=== PATIENT | female | born 1980 | race Two or more races ===

== ENCOUNTER → 2020-11-13 | Outpatient (CLI) | payer OTHER ==
--- NOTE | 2020-11-13 12:05 | REP ---
INDICATION: TREVON SCR MAMMO. COMPARISON: None. TECHNIQUE: MLO and CC views bilateral breasts with tomosynthesis. FINDINGS: Mild scattered fibroglandular tissue is present bilaterally. There is an oval well-defined nodule in the inferolateral right breast measuring 1 cm in maximum diameter. No other mass, nodule or architectural distortion is seen. No clustered microcalcifications are seen. The Volpara volumetric breast density pattern is B. IMPRESSION: BIRADS/ACR category 0, incomplete. Oval smoothly marginated nodule inferolateral right breast 1 cm in diameter. Recommend spot compression views and ultrasound to further evaluate This patient's [facility] lifetime breast cancer risk assessment score is 9.1%. This mammogram was interpreted with the aid of an FDA-approved computer-aided detection system. The patient states she had a clinical breast exam in November 2020. The patient letter being requested is M0. RECOMMENDATION: Recommend spot compression views and ultrasound right breast. <Electronically signed by Jose Cole > 11/13/20 [id number]
== END ==
LOC: M WHC 08:48
PROVIDERS: ATTEND Advanced Practice Midwife
DX: Z12.4 Encounter for screening for malignant neoplasm of cervix (principal); R92.2 Inconclusive mammogram; Z12.31 Encounter for screening mammogram for malignant neoplasm of breast
CPT/HCPCS: 77063; 77067; 87624; G0123; G0463

== ENCOUNTER → 2020-11-23 | Outpatient (CLI) | payer OTHER ==
--- NOTE | 2020-11-23 12:31 | REP ---
INDICATION: ADDL VIEWS RIGHT BREAST NODULE; RIGHT BREAST NODULE. COMPARISON: Comparison screening mammography November 13, 2020. TECHNIQUE: Magnified focal spot-compression CC, mL, and MLO views of the right breast are obtained. A non magnified true mL view with 3D tomography is acquired and targeted right breast sonography is performed. This mammogram was interpreted with the aid of an FDA-approved computer-aided detection system. FINDINGS: Scattered fibroglandular elements are seen. The ill-defined nodular opacity identified on screening mammography in the right breast is again seen projecting in the inferior and lateral quadrant. This has partially obscured margin and overall dimension of 8 mm. No other mammographic abnormality is observed. The Volpara volumetric breast density pattern is b. Targeted ultrasound: Targeted right breast sonography is performed the retroareolar and inferolateral quadrant, 6 o'clock 9 o'clock position. Mildly heterogeneous fibroglandular background echotexture is seen. No cyst or mass is observed sonographically. No acoustic shadowing is seen. No sonographic correlate for the mammographic opacity. IMPRESSION: BIRADS/ACR category 4 suspicious right breast mammographic findings. 8 mm asymmetric nodule in the infero lateral quadrant of the right breast with no sonographic correlate.. Histologic sampling should be considered. RECOMMENDATION: Stereotactic needle biopsy right breast with marker clip placement and post clip placement mammography recommended.. The patient letter being requested is M4. <Electronically signed by Aman Reyna > 11/23/20 [id number]
== END ==
LOC: M WHC 10:33
PROVIDERS: ATTEND Advanced Practice Midwife
DX: N63.31 Unspecified lump in axillary tail of the right breast (principal)
CPT/HCPCS: 76642; 77065; G0279

== ENCOUNTER → 2020-12-06 | Outpatient (CLI) | payer OTHER ==
[~2020-12-06] MED LIST: PROHANCE 279.3MG/ML 15ML VIAL As Ordered ONE; PROHANCE 279.3MG/ML 5ML VIAL As Ordered ONE
--- NOTE | 2020-12-07 09:19 | REP ---
INDICATION: ABNORMAL MAMMO OF RIGHT BREAST. COMPARISON: Mammograms 11/13/2020 and 11/23/2020. TECHNIQUE: Three Litzy MRI imaging was performed with a dedicated breast coil. Axial, coronal, and sagittal T1 and T2 weighted scans were obtained with and without fat saturation in the usual fashion. The study includes dynamically acquired post gadolinium-enhanced imaging with image subtraction. Maximum intensity projection and multi planar reformation imaging is included as well. This study is interpreted with the aid of [employer], an FDA approved computer aided detection (CAD) software program, on a dedicated breast MRI workstation. The gadolinium enhancement dose is 20 mL of intravenous ProHance. FINDINGS: There is mild scattered fibroglandular tissue bilaterally. There is no significant cystic change. There is no axillary adenopathy. There is mild background parenchymal enhancement. In the inferolateral right breast, at the site of the mammographic abnormality, there is a crescent-shaped nodular abnormality. The margins are irregular. It is low in signal on T1 and increased in signal on T2. It measures 0.9 x 1.7 x 1.2 cm. There is mild type 1 enhancement. Incidental note is made of a 2.9 cm gallstone in the gallbladder. IMPRESSION: BI-RADS category 4, suspicious finding in the right breast. At the site of the mammographic abnormality in the inferolateral right breast, there is a crescent shaped nodule with irregular margins as discussed above, which mildly enhances. Recommend stereotactic biopsy. <Electronically signed by Jose Cole > 12/07/20 [id number]
== END ==
LOC: M RAD 14:44
PROVIDERS: ATTEND Advanced Practice Midwife
DX: R92.8 Other abnormal and inconclusive findings on diagnostic imaging of breast (principal); N63.14 Unspecified lump in the right breast, lower inner quadrant
CPT/HCPCS: A9576; C8908

== ENCOUNTER → 2020-12-19 | Outpatient (CLI) | payer OTHER ==
--- NOTE | 2020-12-19 10:53 | REP ---
INDICATION: K80.20 CHOLELITHIASIS COMPARISON: None. TECHNIQUE: Real time saavedra scale ultrasound examination using curved array transducer. FINDINGS: Liver is normal in contour, size, and echogenicity without focal hepatic lesions identified. Pancreas is incompletely evaluated due to interposed bowel gas. The gallbladder demonstrates 2.9 cm gallstone at the neck of the gallbladder without wall thickening or pericholecystic fluid. No biliary ductal dilatation is appreciated and the common bile duct measures 2.3 mm diameter. Right kidney is normal in reniform shape without hydronephrosis and measures 10.5 x 5.3 x 6.5 cm. No ascites in the visualized right upper quadrant. IMPRESSION: Cholelithiasis without evidence for acute cholecystitis. <Electronically signed by Tom Quezada > 12/19/20 [id number]
== END ==
LOC: M WHC 10:03
PROVIDERS: ATTEND Surgery
DX: K80.20 Calculus of gallbladder without cholecystitis without obstruction (principal)

== ENCOUNTER → 2021-01-04 | Outpatient (CLI) | payer OTHER ==
[~2021-01-04] MED LIST changes: +BUPR150T12 PO; +CLOT1CRE56 TOP; +FLUT15.820 NARES; +GNP250TA9 PO; -PROHANCE 279.3MG/ML 15ML VIAL As Ordered ONE; -PROHANCE 279.3MG/ML 5ML VIAL As Ordered ONE
[2021-01-04 14:11] VITALS: BP 128/82
--- NOTE | 2021-01-04 14:21 | REP ---
INDICATION: R92.8 ABN MAMMO RT BREAST,POST STEREOTACTIC BIOPSY. COMPARISON: 11/13/2020. TECHNIQUE: ML and CC views right breast performed following stereotactic biopsy of a nodule inferolaterally. FINDINGS: Biopsy marking clip is seen within the nodule. IMPRESSION: Successful stereotactic biopsy of nodule in the inferolateral right breast. RECOMMENDATION: Clinical follow-up. <Electronically signed by Jose Cole > 01/04/21 [id number]
--- NOTE | 2021-01-04 17:04 | REP ---
INDICATION: R92.8 ABN MAMMO RT BREAST,STEREOTACTIC BIOPSY. COMPARISON: None. TECHNIQUE: This procedure is performed by Marcy Dcikinson RUST, under the direct supervision of Dr. Dr. Cole. The risks and benefits of the procedure were explained to the patient and informed consent was obtained both verbally and written. Directly prior to the start of the procedure, a formal timeout was done in the procedure room. The inferior to superior cranial caudal approach was utilized on the prone table. The right breast mass was localized using mammographic guidance. The skin was prepped and draped in a sterile fashion. Eighteen ml of buffered lidocaine was used as a local anesthetic. FINDINGS: A 12 gauge mammotome vacuum assisted biopsy device was inserted and advanced into the breast lesion and 7 core biopsy samples were obtained. A marker clip was placed at the biopsy site. The patient tolerated the procedure well and there were no immediate complications. After the appropriate amount of monitored convalescence the patient was discharged from the department. IMPRESSION: Stereotactic guided right breast biopsy with micro clip placement. <Electronically signed by Marcy Dickinson > 01/04/21 [id number] <Electronically signed by Jose Cole > 01/04/21 1700
== END ==
LOC: M WHCPRO 06:48
PROVIDERS: ATTEND Surgery
DX: N60.21 Fibroadenosis of right breast (principal)